=== PATIENT | male | born 1970 | race Caucasian/White ===

== ENCOUNTER 2023-10-25 17:19 | Emergency (ER) | payer OTHER, SELFPAY ==
[2023-10-25 17:25] VITALS: BP 165/97
[2023-10-25 17:52] LABS: % Basophils 0.9 % (0-2); % Eosinophils 3.1 % (0-6); % Immature Granulocytes 0.3 % (0-0.5); % Lymphocytes 29.1 % (20.5-51.1); % Monocytes 7.9 % (1.7-9.3); % Neutrophils 58.7 % (42.2-75.2); Absolute Basophils 0.1 10^3/uL (0-0.2); Absolute Eosinophils 0.2 10^3/uL (0-0.7); Absolute Lymphocytes 2.2 10^3/uL (1.2-3.4); Absolute Monocytes 0.6 10^3/uL (0.1-0.6); Absolute Neutrophils 4.4 10^3/uL (1.4-6.5); Hematocrit 44.5 % (39.0-52.0); Hemoglobin 15.7 g/dL (13.0-18.0); Mean Corp Hgb Conc. 35.3 g/dL (33.0-37.0); Mean Corpuscular Hgb 31.6 pg (27.0-31.0); Mean Corpuscular Volume 89.5 fL (80.0-94.0); Mean Platelet Volume 9.3 fL (7.4-10.4); Nucleated Red Blood Cells % 0 % (-); Platelet Count 260 10^3/uL (130-400); Red Blood Cell Count 4.97 10^6/uL (4.70-6.10); Red Cell Dist. Width 12.5 % (11.5-14.5); White Blood Cell Count 7.5 10^3/uL (4.8-10.8)
[2023-10-25 18:03] LABS: Lactic Acid 1.6 mmol/L (0.7-2.0)
[2023-10-25 18:08] LABS: ALT (SGPT) 20 U/L (0-50); AST (SGOT) 20 U/L (17-59); Albumin 4.6 g/dl (3.5-5.0); Alkaline Phosphatase 61 U/L (38-126); Blood Urea Nitrogen 13 mg/dl (9-20); Calcium 9.9 mg/dl (8.4-10.2); Carbon Dioxide 30 mmol/L (22-30); Chloride 98 mmol/L (98-107); Glucose 112 mg/dl (70-99); Sodium 139 mmol/L (135-145); Total Protein 7.3 g/dl (6.3-8.2); eGFR > 60.00
--- NOTE | 2023-10-25 20:32 | ED.GENMED ---
History of Present Illness
General
Chief Complaint: Skin Problem
Source: patient and spouse
Exam Limitations: none
Time Seen by Provider: 10/25/23 19:53
Nursing documentation reviewed up to this point in time: agreed with
Travel History
Have you had any contact with someone who has COVID-19?: No
Do you have any symptoms of coronavirus? Fever > 100 degrees, chills, cough, shortness of breath, sore throat, loss of taste or smell, muscle aches, or headache?: No
History of Present Illness
History of Present Illness:
Patient presents ED secondary to persistent left fourth toe infection over the past 2 months, despite being on 2 courses of antibiotics. Patient was initially treated with ciprofloxacin with near resolution of his infection, but never completely
healed. When redness started to become worse, patient was seen at urgent care center last week and was started on doxycycline. Unlike when he was taking ciprofloxacin, his redness never improved. He was reevaluated today at same urgent care
center who referred patient to ED for an evaluation with concern for 'circulation problem'. Denies fever or chills. Denies nausea or vomiting. Denies loss of sensation. Denies open drainage. Denies previous history of skin infection. Patient
reports minimal pain at the site.
Past History
Past History
ED Past Medical History: Asthma, HTN and Other (Ulcerative colitis); Negative Hypercholesterolemia
ED Past Surgical History: Cholecystectomy
Social History
Tobacco: Non-smoker
Alcohol: Daily
Personal:
Living: with family
Employment: Employed
Review of Systems
Review of Systems
Allergies reviewed?: Yes
All Other Systems: ROS reviewed and negative except as documented in HPI and ROS
Constitutional: Reports no symptoms; Denies fever
ABD/GI: Reports no symptoms
Musculoskeletal: Reports no symptoms
Skin: Reports other (Toe redness with swelling)
Neurological: Reports no symptoms
Phy Exam
Physical Exam
Physical Exam:
Physical Exam
General: no apparent distress, not acutely ill. afebrile
Head: nc/at. eomi
Neck: supple. normal range of motion.
Neuro: alert and oriented. no focal neurological deficits
Skin: erythema with mild swelling noted on the volar surface of distal fourth toe, without nail involvement. no open drainage. cap refill less than 2 seconds. warm to touch. equal DPP bilaterally.
Psychiatric: well kept. interactive and cooperative
Extremities: no edema. no calf tenderness
Course
Orders/Labs/Results
Orders:
Orders
10/25/23 17:38
Complete Blood Count/With Diff Urgent
Comprehensive Metabolic Panel Urgent
Lactic Acid Urgent
Blood Culture Urgent
LALO Source: Blood/Venous
Specimen Description:
10/25/23 20:30
LevoFLOXacin [Levaquin] 500 mg PO NOW STA
Abnormal Lab Results
10/25/23
17:38
MCH 31.6 H pg
(27.0-31.0)
Glucose 112 H mg/dl
(70-99)
10/25/23 17:38
10/25/23 17:38
Vital Signs
Initial and Last Documented VS:
Initial Vital Signs
Temp Pulse Resp BP Pulse Ox
97.8 F 80 20 165/97 99
10/25/23 17:25 10/25/23 17:25 10/25/23 17:25 10/25/23 17:25 10/25/23 17:25
Last Documented Vital Signs
Temp Pulse Resp BP Pulse Ox
97.8 F 77 15 154/88 99
10/25/23 17:25 10/25/23 20:43 10/25/23 20:43 10/25/23 20:43 10/25/23 20:43
MDM/Problems Addressed
MDM/Problems Addressed:
History and exam concerning for persistent, ongoing toe swelling with redness consistent with cellulitis, without any evidence of abscess formation. Otherwise, patient is afebrile, with well localized fluid, without any evidence of systemic
infection. In light of patient's history of Raynaud's phenomenon, it is quite possible that it may be contributing to his prolonged healing process. Patient may benefit from formal vascular evaluation, due to ongoing infection. As such, patient
will be restarted on ciprofloxacin, which helped greatly at the onset of his symptoms, along with referral to vascular surgery for an outpatient consultation. Patient and spouse expressed understanding at time of discharge.
*Critical Care Note
Total Time (30-74mins, 75-104mins- exclusive of procedures): Not Applicable
ED Attending Note
-
Portions of this chart may have been created with voice recognition software.� Occasional wrong word or��sound alike� substitutions may have occurred due to the inherent limitations of voice recognition software.
Discharge Plan
Departure
Patient Disposition: Home (Routine Discharge)
Date of Disposition: 10/25/23
Time of Disposition: 20:32
Patient with high blood pressure during this ER visit?: Yes
Covid-19: Not Applicable
Discharge Problem:
Cellulitis of fourth toe
Instructions: Cellulitis (Skin Infection), Adult (DC)
Prescriptions:
New
ciprofloxacin HCl 500 mg tablet
500 mg PO BID Qty: 14 0RF
No Action
Avapro
150 mg PO DAILY
ranitidine HCl [Zantac] 150 MG tablet
150 mg PO BID
mesalamine [Lialda] 1.2 GM tablet,delayed release (DR/EC)
2.4 g PO DAILY
Cinnamon
1,000 mg PO BID
Referrals:
Michele Wilson DO [Family Provider] -
Isaura Ramirez MD [Active] -
Activity Restrictions/Additional Instructions:
As discussed, please follow-up with your primary care physician and/or referred to vascular surgeon for further evaluation and treatment. Your prescription has been sent electronically to [facility] pharmacy in [place].
Interventions
Interventions:
*Risk Screen - Suicide Last Done: 10/25/23 17:25
*General Assessment Last Done: 10/25/23 17:25
*Neglect/Abuse Screening Last Done: 10/25/23 17:25
ED- Fall Risk Assessment Last Done: 10/25/23 19:52
*ED COVID-19 Vaccine History Last Done: 10/25/23 19:52
*Nursing Disposition Last Done: 10/25/23 20:52
ED-Skin Assessment Last Done: 10/25/23 19:52
Discharge Date and Time
Discharge Date/Time: 10/25/23 20:52
[2023-10-25] MEDS: LEVAQUIN 500 MG PO (20:36)
[2023-10-25 20:43] VITALS: BP 154/88
== END 2023-10-25 20:52 | disposition home or self-care (01) ==
LOC: EMR 17:19
PROVIDERS: Emergency Medicine; EMERGENCY PHYSICIAN Emergency Medicine; FAMILY PHYSICIAN Family Medicine
DX: L03.032 Cellulitis of left toe (principal); I10 Essential (primary) hypertension
CPT/HCPCS: 99283; 80053; 83605; 85025; 87040

== ENCOUNTER → 2024-04-05 06:48 | Day surgery (SDC) | payer OTHER, SELFPAY | LOC: GI 06:48 | PROVIDERS: ATTENDING PHYSICIAN Internal Medicine Gastroenterology | DX: Z12.11 Encounter for screening for malignant neoplasm of colon (principal); K51.00 Ulcerative (chronic) pancolitis without complications; K57.30 Diverticulosis of large intestine without perforation or abscess without bleeding; K64.8 Other hemorrhoids | CPT/HCPCS: 45380; 88305 ==